=== PATIENT | male | born 1945 | race Caucasian/White ===

== ENCOUNTER 2016-12-20 16:43 | Emergency (ER) | payer MEDICARE, OTHER ==
[2016-12-20 16:52] VITALS: TEMP 97.7; BMI 35.4
[2016-12-20] MEDS ORDERED: IBUPROFEN 600 MG TAB PO ONE (17:17)
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
[2016-12-20 17:45] VITALS: PULSE 68
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
[2016-12-20 19:38] VITALS: BP 165/71
== END 2016-12-20 19:35 | disposition home or self-care (01) ==
LOC: ED 16:43
DX: S22.089A Unspecified fracture of T11-T12 vertebra, initial encounter for closed fracture (principal); V49.9XXA Car occupant (driver) (passenger) injured in unspecified traffic accident, initial encounter; Y93.9 Activity, unspecified; Y92.410 Unspecified street and highway as the place of occurrence of the external cause
CPT/HCPCS: 70450; 70486; 72070; 72125; 99284; J3490